=== PATIENT | male | born 2000 | race Caucasian/White ===

== ENCOUNTER 2019-08-07 10:31 | Outpatient (CLI) | payer BC, SELFPAY ==
[2019-08-07 11:34] LABS: Abs Immature Grans 0.01 k/cumm (0.0-0.09); Absolute Basophil Count 0.03 k/cumm (0.0-0.2); Absolute Eosinophil Count 0.07 k/cumm (0.0-0.7); Absolute Lymphocyte Count 1.15 k/cumm (1.2-3.4); Absolute Monocyte Count 0.44 k/cumm (0.11-0.7); Absolute Neutrophil Count 1.86 k/cumm (1.2-6.7); Basophils % 0.8; HCT 40.9 % (40.0-50.0); HGB 14.2 g/dL (13.5-17.5); Immature Grans % 0.3; Lymphocytes % 32.3; Mean Corp. HGB Concentration 34.7 g/dL (32.0-36.0); Mean Corpuscular Hemoglobin 29.8 pg (27.0-33.0); Mean Corpuscular Volume 85.7 fL (80-95); Mean Platelet Volume 10.7 fL (8.0-11.0); Monocytes % 12.4; Neutrophils % 52.2; Platelet Count 178 x1000/uL (130-400); RBC 4.77 m/cumm (4.50-6.00); RBC Distribution Width 12.5 % (11.8-14.1); White Blood Cell Count 3.56 k/cumm (4.4-10.8)
[2019-08-07 11:43] LABS: Mono Screening Negative (Negative)
[2019-08-07 13:09] LABS: ALT 17 U/L (16-63); AST 16 U/L (15-37); Albumin 4.7 g/dL (3.4-5.0); Alkaline Phosphatase 59 U/L (46-116); Anion Gap 7.4 mmol/L (3-11); BUN 15 mg/dL (7-18); Bilirubin, Total 1.1 mg/dL (0.2-1.0); C-Reactive Protein 0.05 mg/dL (0.0-0.3); CO2 28.6 mmol/L (21.0-32.0); CREATININE 0.85 mg/dL (0.70-1.30); Calcium 9.2 mg/dL (8.5-10.1); Chloride 104 mmol/L (98-107); Glucose 84 mg/dL (70-100); Sodium 140 mmol/L (136-145); TSH (W/Ref FT4) 0.81 uIU/mL (0.52-4.13); Total Protein 7.7 g/dL (6.4-8.2)
[2019-08-07 13:31] LABS: Calculated LDL 72 mg/dL; Cholesterol 126 mg/dL (50-200); HDL Cholesterol 42 mg/dL (40-60); Triglyceride 61 mg/dL (30-150)
[2019-08-07 13:50] LABS: Vitamin D 25 Total 34.9 ng/ml (30-100)
[2019-08-08 12:11] LABS: EBNA IgG Negative; EBV Interpretation SEE COMMENTS; VCA IgG Negative; VCA IgM Negative
== END 2019-08-07 10:51 ==
PROVIDERS: PCP Pediatrics; Visit Provider Pediatrics
DX: R53.82 Chronic fatigue, unspecified (principal)
CPT/HCPCS: 36415; 80053; 80061; 82306; 84443; 85025; 86140; 86308; 86664; 86665